=== PATIENT | male | born 1970 | race Caucasian/White ===

== ENCOUNTER 2017-05-06 23:35 | Emergency (ER) | payer OTHER ==
--- NOTE | 2017-05-07 00:45 | EDM.PDOC ---
ED HPI GENERAL MEDICAL PROBLEM - General Chief Complaint: Lower Extremity Injury/Pain Stated Complaint: POSSIBLE RIGHT ANKLE BROKEN Time Seen by Provider: 05/07/17 00:45 - History of Present Illness INITIAL COMMENTS - FREE TEXT/NARRATIVE: 46-year-old male presents emergency room with a right ankle injury. Couple hours before arrival here the patient slipped on some ice and even with a heavy boot on twisted his right ankle pretty hard. He thinks he may have broken it. Patient denies any prior injury to this ankle however his fractured the left ankle in the past. Patient has significant discomfort with this. He denies any other injuries associated with this mishap. Right Ankle Pain Score (Numeric/FACES): 7 - Related Data Allergies Allergy/AdvReac Type Severity Reaction Status Date / Time No Known Allergies Allergy Verified 05/07/17 01:14 Home Meds: Home Meds . [No Known Home Meds] 05/07/17 [History] Past Medical History - Past Health History Medical/Surgical History: Denies Medical/Surgical History Musculoskeletal History: Reports: Fracture - Past Surgical History Male Surgical History: Reports: Prostatectomy Social & Family History - Tobacco Use Smoking Status *Q: Current Every Day Smoker Years of Tobacco use: 2 Packs/Tins Daily: 0.1 - Recreational Drug Use Recreational Drug Use: No Review of Systems - Review of Systems Review Of Systems: See Below Constitutional: Reports: No Symptoms Respiratory: Denies: No Symptoms Cardiovascular: Denies: No Symptoms GI/Abdominal: Denies: No Symptoms Genitourinary: Denies: No Symptoms Musculoskeletal: Denies: Leg Pain, Foot Pain Skin: Denies: No Symptoms ED EXAM, GENERAL - Physical Exam Exam: See Below Exam Limited By: No Limitations General Appearance: Alert, Moderate Distress Head: Atraumatic, Normocephalic Neck: Normal Inspection, Supple, Non-Tender, Full Range of Motion. No: Lymphadenopathy (L), Lymphadenopathy (R) Respiratory/Chest: No Respiratory Distress, Lungs Clear, Normal Breath Sounds Cardiovascular: Regular Rate, Rhythm, No Edema, No Murmur GI/Abdominal: Normal Bowel Sounds, Soft, Non-Tender Extremities: Other (Examination of his right lower leg shows no palpable discomfort and he gets to the ankle most notably the medial side of the ankle. Palpation the foot is nontender and see get close to the medial ankle. Neurovascular status of the toes and digits is normal) Neurological: Alert, Oriented, Normal Cognition Course - Vital Signs Last Recorded V/S: Last Vital Signs Temp 36.3 C 05/06/17 23:51 Pulse 98 05/06/17 23:51 Resp 18 05/06/17 23:51 BP 149/101 H 05/06/17 23:51 Pulse Ox 100 05/06/17 23:51 - Orders/Labs/Meds Orders: Active Orders 24 hr Category Date Time Status Ankle Min 3V Rt [CR] Stat Exams 05/07/17 00:37 Taken Foot 2V Rt [CR] Stat Exams 05/07/17 01:06 Taken Durable Medical Equipment for Discharge [DME for Oth 05/07/17 02:56 Ordered Discharge] [COMM] Stat Meds: Medications Discontinued Medications Generic Name Dose Route Start Last Admin Trade Name Freq PRN Reason Stop Dose Admin Oxycodone/Acetaminophen 1 tab 05/07/17 01:02 05/07/17 01:15 Percocet 325-5 Mg PO 05/07/17 01:03 1 tab ONETIME ONE Administration - Re-Assessments/Exams Free Text/Narrative Re-Assessment/Exam: 05/07/17 03:[address] Washington patient will be placed in a Western walker and crutches strict nonweightbearing patient will follow-up with Dr. Washington later today. Patient understands this. Departure - Departure Time of Disposition: 03:19 Disposition: Home, Self-Care 01 Clinical Impression: Closed right ankle fracture - Discharge Information Referrals: PCP,None [Primary Care Provider] - Steve Washington MD [Physician] - Forms: ED Department Discharge Additional Instructions: Return to the emergency room with any questions problems worsening symptoms. You have been placed in a walking cast wear this all the time. Use crutches all the time. It is recommended that you do not drive while wearing the walking cast. While sitting try and keep your foot elevated as much as possible. Follow-up with Dr. Gamble tomorrow call first thing in the morning for an appointment. [phone] You have been given a prescription for Percocet 5/325 #20 from the machine out in the waiting room use one or 2 every 6 hours as needed for pain. Allow 12 hours after using this medication before driving or returning to work. - My Orders Last 24 Hours: My Active Orders 05/07/17 00:37 Ankle Min 3V Rt [CR] Stat 05/07/17 01:06 Foot 2V Rt [CR] Stat 05/07/17 02:56 Durable Medical Equipment for Discharge [DME for Discharge] [COMM] Stat - Assessment/Plan Last 24 Hours: My Active Orders 05/07/17 00:37 Ankle Min 3V Rt [CR] Stat 05/07/17 01:06 Foot 2V Rt [CR] Stat 05/07/17 02:56 Durable Medical Equipment for Discharge [DME for Discharge] [COMM] Stat
[2017-05-07] MEDS ORDERED: Acetaminophen/oxyCODONE 325-5 MG Tab PO ONE (01:02)
--- NOTE | 2017-05-07 09:38 | CR ---
Right foot: Two views of the right foot were obtained. Comparison: No previous study. Mildly displaced medial malleolus fracture is noted. No additional fracture or other bony abnormality is seen. Impression: 1. Mildly displaced medial malleolus fracture. 2. Two-view right foot study is otherwise unremarkable. Diagnostic code #3
--- NOTE | 2017-05-07 09:38 | CR ---
Right ankle: Four views of the right ankle were obtained. Comparison: No previous study. Displaced medial malleolus fracture is noted. Small calcification off the lateral malleolus is seen compatible with old injury. No other acute bony abnormality is seen. Soft tissue swelling is present. Impression: 1. Mildly displaced medial malleolus fracture with soft tissue swelling. Diagnostic code #3
== END 2017-05-07 03:36 | disposition home or self-care (01) ==
LOC: JD.ED 23:35
DX: S82.51XA Displaced fracture of medial malleolus of right tibia, initial encounter for closed fracture (principal); W00.0XXA Fall on same level due to ice and snow, initial encounter; F17.210 Nicotine dependence, cigarettes, uncomplicated
CPT/HCPCS: 73610; 73620; 99283; A9270